=== PATIENT | female | born 1945 | race Hispanic/Latino ===

== ENCOUNTER → 2018-08-01 | Outpatient (CLI) | payer MEDICARE, OTHER ==
[~2018-08-01] MED LIST: ASPI-1012 PO; ATOR40TA71 PO; CLOP75TA32 PO; INSU100V12 SQ; INSU10VI3 SQ; INSU3INS5 SQ; ISOS30TA6 PO; LEVO50 PO; LEVO500T2 PO; METO-391 PO; PARO-37 PO; POTA10TA14 PO; REGADENOSON 0.4 MG/5 ML PF SYG IVP SCH; TRAM50TA2 PO
== END | disposition home or self-care (01) ==
LOC: SHCH 07:54
PROVIDERS: ATTEND Internal Medicine Cardiovascular Disease
DX: I20.8 Other forms of angina pectoris (principal); I10 Essential (primary) hypertension; E11.9 Type 2 diabetes mellitus without complications
CPT/HCPCS: 78452; 93017; 96374; A9500 ×2; J2785

== ENCOUNTER → 2021-11-26 | Outpatient (CLI) | payer OTHER ==
[~2021-11-26] MED LIST changes: -ISOS30TA6 PO; +ISOS30TA92 PO; -REGADENOSON 0.4 MG/5 ML PF SYG IVP SCH
== END | disposition home or self-care (01) ==
LOC: RAH 16:19
PROVIDERS: ATTEND Clinical Nurse Specialist Family Health
DX: S22.41XA Multiple fractures of ribs, right side, initial encounter for closed fracture (principal); T14.8XXA Other injury of unspecified body region, initial encounter; M47.814 Spondylosis without myelopathy or radiculopathy, thoracic region; M48.04 Spinal stenosis, thoracic region; M47.816 Spondylosis without myelopathy or radiculopathy, lumbar region; M41.85 Other forms of scoliosis, thoracolumbar region; I70.0 Atherosclerosis of aorta; I70.8 Atherosclerosis of other arteries; Z98.890 Other specified postprocedural states; X58.XXXA Exposure to other specified factors, initial encounter; Y93.89 Activity, other specified; Y92.89 Other specified places as the place of occurrence of the external cause; Y99.8 Other external cause status
CPT/HCPCS: 71100; 72070; 72100